=== PATIENT | female | born 1980 | race Caucasian/White ===

== ENCOUNTER 2017-09-18 15:14 | Emergency (ER) | payer OTHER ==
--- NOTE | 2017-09-18 15:39 | PDOC ---
Rapid Medical Evaluation Time Seen by Provider: 09/18/17 15:37 Medical Evaluation: Allergies Allergy/AdvReac Type Severity Reaction Status Date / Time No Known Allergies Allergy Verified 09/18/17 15:36 09/18/17 15:37 Pt presents to the ED: left ankle swelling and pain since monday Pt on brief exam: vss Pt ordered for: ankle and foot Pt to proceed to the ED Discharge Disposition - Diagnosis Ankle pain - Referrals - Patient Instructions - Post Discharge Activity
[2017-09-18 15:40] VITALS: BP 136/89; PULSE 92; TEMP 97.7; BMI 31.3
--- NOTE | 2017-09-18 16:59 | PDOC ---
History of Present Illness - General Chief Complaint: Edema Stated Complaint: SWOLLEN LT FOOT Time Seen by Provider: 09/18/17 15:37 - History of Present Illness Initial Comments: 09/18/17 16:51 CHIEF COMPLAINT: left foot swelling HISTORY OF PRESENT ILLNESS: 36 yo F with hx of 35-year-old female with history of chronic back pain, carpal tunnel, excision of superficial lump to the neck, ectopic , ovarian cystectomy presents to fast track with swelling and pain to left foot and ankle. 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 PAST MEDICAL HISTORY: Denies past medical history FAMILY HISTORY: Denies SOCIAL HISTORY: Denies tobacco, alcohol, illicit drug use. SURGICAL HISTORY: Denies ALLERGIES: No known drug allergies REVIEW OF SYSTEMS General/Constitutional: Denies fever or chills. Denies weakness. HEENT: Denies change in vision. Denies ear pain or discharge. Denies sore throat. Cardiovascular: Denies chest pain or shortness of breath. Respiratory: Denies cough, wheezing, or hemoptysis. Gastrointestinal: Denies nausea, vomiting, diarrhea. Denies rectal bleeding. Genitourinary: Denies dysuria, frequency, or change in urination. Musculoskeletal: Pain and swelling to L ankle and foot. Skin and breasts: Denies rash or easy bruising. Neurologic: Denies headache, vertigo, loss of consciousness, or loss of sensation. PHYSICAL EXAM General Appearance: Well-appearing, appropriately dressed. No apparent distress. HEENT: EOMI, PERRLA. No conjunctival pallor. No photophobia, scleral icterus. Respiratory/Chest: Lungs CTAB. Cardiovascular: RRR. S1, S2. Vascular Pulses: Dorsalis-Pedis (R): 2+, Dorsalis-Pedis (L): 2+ Musculoskeletal/Extremities: Tenderness to left foot from anterior lateral malleolus to base of 5th metatarsal down lateral aspect foot to pinky toe. Normal inspection. FROM of all extremities, normal capillary refill. Pelvis Stable. No CVA tenderness. No tenderness to extremities, pedal edema, swelling , erythema or deformity. Integumentary: Appropriate color, dry, warm. No cyanosis, erythema, jaundice or rash Neurologic: clinical laboratory manager II-XII intact. Fully oriented, alert. Appropriate mood/affect. Motor strength 5/5. No appreciable EOM palsy, facial droop or sensory deficit. Past History - Past Medical History Allergies/Adverse Reactions: Allergies Allergy/AdvReac Type Severity Reaction Status Date / Time No Known Allergies Allergy Verified 09/18/17 15:36 Home Medications: Ambulatory Orders Quetiapine Fumarate [Seroquel] 50 mg PO HS 02/23/13 Diclofenac Sodium 50 mg PO BID #20 tablet. 09/18/17 COPD: No Other medical history: DENIES. - Suicide/Smoking/Psychosocial Hx Smoking Status: Yes Smoking History: Current every day smoker Number of Cigarettes Smoked Daily: 6 Information on smoking cessation initiated: No *Physical Exam - Vital Signs Last Vital Signs Temp Pulse Resp BP Pulse Ox 97.7 F 92 H 18 136/89 97 09/18/17 15:36 09/18/17 15:36 09/18/17 15:36 09/18/17 15:36 09/18/17 15:36 Medical Decision Making - Medical Decision Making 09/18/17 17:24 36 yo F with hx of 35-year-old female with history of chronic back pain, carpal tunnel, excision of superficial lump to the neck, ectopic , ovarian cystectomy presents to fast track with swelling and pain to left foot and ankle. -x-ray left ft/ankle x-ray + for avulsion fracture to cuboid. Consistent with peroneal injury resulting in avulsion fracture. -jennifer bandage, post op shoe, crutches, Advised patient to take medication as prescribed and follow up with orthopedics this week. Advised patient of signs and symptoms for return to ED. Patient verbalized understanding and agrees to plan. *DC/Admit/Observation/Transfer Diagnosis at time of Disposition: Ankle pain Qualifiers: Chronicity: acute Laterality: left Qualified Code(s): M25.572 - Pain in left ankle and joints of left foot Avulsion fracture of ankle Qualifiers: Encounter type: initial encounter Fracture type: closed Laterality: left Qualified Code(s): S82.892A - Other fracture of left lower leg, initial encounter for closed fracture Peroneal tendon injury Qualifiers: Encounter type: initial encounter Laterality: left Qualified Code(s): S86.302A - Unspecified injury of muscle(s) and tendon(s) of peroneal muscle group at lower leg level, left leg, initial encounter - Discharge Dispostion Disposition: HOME Condition at time of disposition: Stable Admit: No - Prescriptions Prescriptions: Diclofenac Sodium 50 mg PO BID #20 tablet.dr - Referrals Referrals: Brady Mckinnon MD [Staff Physician] - Ramírez Tena MD [Staff Physician] - - Patient Instructions Printed Discharge Instructions: DI for Ankle Fracture Additional Instructions: Please take medications as prescribed. Please follow up with orthopedics or podiatry this week for further evaluation and physical therapy for your ankle. Please apply RICE (rest, ice, compress, elevate) therapy as provided in instructions. If you develop any new or worsening symptoms, please return to the ER. - Post Discharge Activity Forms/Work/School Notes: Back to Work
[2017-09-18] MEDS ORDERED: KETOROLAC TROMETHAMINE 60 MG/2 ML VIAL IM ONE (17:25)
[2017-09-18] MEDS ORDERED: KETOROLAC TROMETHAMINE 60 MG/2 ML VIAL ONE (17:30)
== END 2017-09-18 17:40 | disposition home or self-care (01) ==
LOC: JERFT 15:14
DX: S86.302A Unspecified injury of muscle(s) and tendon(s) of peroneal muscle group at lower leg level, left leg, initial encounter (principal); S82.892A Other fracture of left lower leg, initial encounter for closed fracture; X50.1XXA Overexertion from prolonged static or awkward postures, initial encounter; X50.9XXA Other and unspecified overexertion or strenuous movements or postures, initial encounter; Y93.89 Activity, other specified; Y92.89 Other specified places as the place of occurrence of the external cause; Y99.8 Other external cause status
CPT/HCPCS: 73610-TC-LT; 73630-TC-LT; 99281-25

== ENCOUNTER 2023-05-17 06:18 | Emergency (ER) | payer OTHER ==
[2023-05-17 06:29] VITALS: BP 128/85; PULSE 81; RESP 18; TEMP 97.6; BMI 34.3
[2023-05-17] MEDS ORDERED: SODIUM CHLORIDE 1,000 ML IV STA (07:50)
[2023-05-17] MEDS ORDERED: ONDANSETRON 4 MG/2 ML VIAL IVPUSH ONE (07:51)
[2023-05-17] MEDS ORDERED: ACETAMINOPHEN 1000 MG/100 ML BAG IVPB ONE (07:51)
[2023-05-17] MEDS ORDERED: ACETAMINOPHEN INJECTION 100 ML IVPB ONE (08:01)
[2023-05-17] MEDS ORDERED: ONDANSETRON 4 MG/2 ML VIAL ONE (08:01)
[2023-05-17 09:05] LABS: EPI CELLS >36 /uL (0-25.1); HCG,QUALITATIVE URINE Negative; HYALINE CASTS 2 /uL (0-3.1); PH,URINE 5.5 (5.0-8.0); URINE APPEARANCE CLEAR; URINE BACTERIA 740 /uL (0-1359); URINE BILIRUBIN NEGATIVE (NEGATIVE); URINE COLOR YELLOW; URINE GLUCOSE (UA) NEGATIVE (NEGATIVE); URINE KETONE NEGATIVE (NEGATIVE); URINE LEUK ESTERASE NEGATIVE (NEGATIVE); URINE NITRITE NEGATIVE (NEGATIVE); URINE PROTEIN 1+ (NEGATIVE); URINE RBC 31 /uL (0-23.9); URINE UROBILINOGEN 0.2 mg/dL (0.2-1.0)
[2023-05-17 09:09] LABS: INR 0.83 (0.83-1.09); PROTHROMBIN TIME (PATIENT) 9.6 SEC (9.7-13.0)
[2023-05-17 09:11] LABS: POTASSIUM 5.1 mmol/L (3.5-5.1)
[2023-05-17 09:13] LABS: CALCIUM 9.3 mg/dL (8.5-10.1)
[2023-05-17 09:14] LABS: ALBUMIN 3.5 g/dl (3.4-5.0); BLOOD UREA NITROGEN 11.9 mg/dL (7-18)
[2023-05-17 09:17] LABS: CREATININE 0.7 mg/dL (0.55-1.3)
[2023-05-17 09:18] LABS: BILIRUBIN,TOTAL 0.3 mg/dL (0.2-1); TOT PROT 7.5 g/dl (6.4-8.2)
[2023-05-17 09:37] LABS: URINE WBC 79 /uL (0-25.8)
[2023-05-17 11:43] LABS: BASO % 0.2 % (0-2.0); EOS % 0.9 % (0-4.5); HEMATOCRIT 42.3 % (32.4-45.2); LYMPH % 29.1 % (8-40); MCH 29.1 pg (25.7-33.7); MEAN PLT VOLUME 7.8 fl (7.5-11.1); MONO % 3.7 % (3.8-10.2); NEUT % 66.1 % (42.8-82.8); PLATELET COUNT 319 10^3/uL (134-434); RBC 4.81 M/mm3 (3.60-5.2); RDW 14.1 % (11.6-15.6); WHITE BLOOD COUNT 14.3 K/mm3 (4.0-10.0)
== END 2023-05-17 12:55 | disposition home or self-care (01) ==
LOC: JER 06:18
PROC: 3E033NZ Introduction of Analgesics, Hypnotics, Sedatives into Peripheral Vein, Percutaneous Approach (ICD-10-PCS; principal; 2023-05-17)
PROC: 3E033GC Introduction of Other Therapeutic Substance into Peripheral Vein, Percutaneous Approach (ICD-10-PCS; 2023-05-17)
PROC: 3E0337Z Introduction of Electrolytic and Water Balance Substance into Peripheral Vein, Percutaneous Approach (ICD-10-PCS; 2023-05-17)
DX: S00.83XA Contusion of other part of head, initial encounter (principal); R55 Syncope and collapse; R11.0 Nausea; W22.8XXA Striking against or struck by other objects, initial encounter; Y92.002 Bathroom of unspecified non-institutional (private) residence as the place of occurrence of the external cause; Z20.822 Contact with and (suspected) exposure to COVID-19
CPT/HCPCS: 0241U-QW; 36415; 70450-TC; 71046-TC-FY; 80053; 81003; 82962; 83735; 84484; 84703; 85025; 85610; 85730; 86850; 86900; 86901; 87086; 93005; 93010; 99285-25

== ENCOUNTER 2023-12-02 04:24 | Observation (INO) | payer OTHER ==
[2023-12-02 04:34] VITALS: RESP 18; BMI 35.5
[2023-12-02 05:45] LABS: BASO % 0.5 % (0-2.0); EOS % 0.9 % (0-4.5); HEMOGLOBIN 14.6 GM/dL (10.7-15.3); LYMPH % 21.1 % (8-40); MCH 28.9 pg (25.7-33.7); MCHC 32.4 g/dl (32.0-36.0); MEAN CELL VOLUME 89.1 fl (80-96); MEAN PLT VOLUME 7.3 fl (7.5-11.1); MONO % 4.8 % (3.8-10.2); NEUT % 72.7 % (42.8-82.8); PLATELET COUNT 327 10^3/uL (134-434); RBC 5.05 M/mm3 (3.60-5.2); RDW 14.3 % (11.6-15.6); WHITE BLOOD COUNT 13.3 K/mm3 (4.0-10.0)
[2023-12-02] MEDS ORDERED: ACETAMINOPHEN INJECTION 100 ML IVPB ONE (06:01)
[2023-12-02] MEDS ORDERED: LIDOCAINE 4% PATCH TP ONE (06:01)
[2023-12-02 06:02] LABS: POTASSIUM 4.4 mmol/L (3.5-5.1)
[2023-12-02 06:04] LABS: CALCIUM 8.9 mg/dL (8.5-10.1)
[2023-12-02 06:05] LABS: ALBUMIN 3.2 g/dl (3.4-5.0); BLOOD UREA NITROGEN 14.1 mg/dL (7-18)
[2023-12-02] MEDS: LIDOCAINE 5% TOPICAL PATCH TP ONE (06:06)
[2023-12-02] MEDS: ACETAMINOPHEN 1000 MG/100 ML BAG IVPB ONE (06:06)
[2023-12-02 06:07] LABS: INR 0.97 (0.83-1.09); PROTHROMBIN TIME (PATIENT) 11.3 SEC (9.7-13.0)
[2023-12-02 06:08] LABS: CREATININE 0.7 mg/dL (0.55-1.3)
[2023-12-02 06:09] LABS: ACTIVATED PTT 29.1 SECONDS (25.2-36.5)
[2023-12-02 06:10] LABS: BILIRUBIN,TOTAL 0.3 mg/dL (0.2-1); TOT PROT 6.6 g/dl (6.4-8.2)
[2023-12-02 07:31] LABS: HCG,QUALITATIVE URINE Negative
[2023-12-02 08:00] LABS: URINE APPEARANCE CLEAR; URINE BILIRUBIN NEGATIVE (NEGATIVE); URINE COLOR YELLOW; URINE GLUCOSE (UA) NEGATIVE (NEGATIVE); URINE KETONE NEGATIVE (NEGATIVE); URINE LEUK ESTERASE NEGATIVE (NEGATIVE); URINE NITRITE NEGATIVE (NEGATIVE); URINE PROTEIN TRACE (NEGATIVE); URINE UROBILINOGEN 0.2 mg/dL (0.2-1.0)
[2023-12-02] MEDS ORDERED: KETOROLAC TROMETHAMINE 30 MG/1 ML VIAL ONE (09:37)
[2023-12-02] MEDS: KETOROLAC TROMETHAMINE 30 MG/1 ML VIAL IVPUSH ONE (09:54)
[2023-12-02] MEDS ORDERED: ACETAMINOPHEN 325 MG TABLET (FP) PO PRN (10:37)
[2023-12-02] MEDS: cloNIDine HCL 0.1 MG TABLET PO SCH (12:34)
[2023-12-02] MEDS: SODIUM CHLORIDE 1,000 ML IV SCH (12:34)
[2023-12-02 15:37] LABS: METHADONE, UR NEGATIVE (NEGATIVE); URINE BARBITURATES NEGATIVE (NEGATIVE); URINE BENZODIAZEPINES NEGATIVE (NEGATIVE)
[2023-12-02 15:38] LABS: COCAINE, UR NEGATIVE (NEGATIVE); OPIATES, URI NEGATIVE (NEGATIVE); URINE AMPHETAMINES NEGATIVE (NEGATIVE)
[2023-12-02 15:40] LABS: PHENCYCLIDINE,URINE NEGATIVE (NEGATIVE)
[2023-12-02 21:07] VITALS: BP 133/83; PULSE 77; TEMP 98
[2023-12-02] MEDS ORDERED: LIDOCAINE PATCH REMOVAL MC ONE (22:00)
== END 2023-12-02 21:36 | disposition left against medical advice (07) ==
LOC: JER 04:24 → JERBED 09:59
PROVIDERS: ADMIT Internal Medicine; ATTEND Internal Medicine
PROC: 3E033NZ Introduction of Analgesics, Hypnotics, Sedatives into Peripheral Vein, Percutaneous Approach (ICD-10-PCS; principal; 2023-12-02)
PROC: 3E0333Z Introduction of Anti-inflammatory into Peripheral Vein, Percutaneous Approach (ICD-10-PCS; 2023-12-02)
PROC: 3E0337Z Introduction of Electrolytic and Water Balance Substance into Peripheral Vein, Percutaneous Approach (ICD-10-PCS; 2023-12-02)
DX: S00.83XA Contusion of other part of head, initial encounter (principal); I10 Essential (primary) hypertension; W18.39XA Other fall on same level, initial encounter; Y93.89 Activity, other specified; Y92.002 Bathroom of unspecified non-institutional (private) residence as the place of occurrence of the external cause; Z91.018 Allergy to other foods; F17.200 Nicotine dependence, unspecified, uncomplicated
CPT/HCPCS: 36415; 70450-TC; 70486-TC; 71045-TC-FY; 72125-TC; 80053; 80307; 81003; 82550; 84439; 84443; 84484; 84703; 85025; 85610; 85730; 86850; 86900; 86901; 93005; 93010; 93880-TC; 96361; 96374; 96375; 99285-25; G0378; J0131